=== PATIENT | female | born 2000 | race Caucasian/White ===

== ENCOUNTER 2020-02-25 05:01 | Inpatient (IN) | payer OTHER ==
[~2020-02-25] VITALS: Ht 165.1 cm; Wt 69.3 kg
[2020-02-25] VITALS (11 sets, daily range): BP systolic 110–133; BP diastolic 56–77
[2020-02-25] MEDS ORDERED: PRENTAB9 PO (06:17)
[2020-02-25] MEDS ORDERED: PEPC1TAB5 PO (06:17)
[2020-02-25] MEDS ORDERED: LR 1,000 ML IV SCH (06:28)
[2020-02-25] MEDS ORDERED: OXYTOCIN DRIP 30 UNITS in IV 1 EA IV SCH ×2 (06:30→11:36)
--- NOTE | 2020-02-25 07:01 | HPEPDOC ---
Obstetrical History & Physical General Date of Admission Feb 25, 2020 at 06:17 History of Present Illness 19 yo G1 @ 39+6 by 6 WEEKS US who presents in labor. she started having painful contractions yesterday at 8 PM and they have worsened through the night are now every 3-4 min. she denies any vaginal bleeding or loss of fluids. she notes regular movements. APC 1. Heterozygote for Factor V Leiden w/o personal History of VTE 2. Anemia 3. Transfer of care in 3rd trimester Chief Complaint: Contractions, term Information Provided By: Patient Age: 19 : 1 Care Care: Good Care Dating Final EDC: Feb 26, 2020 Final EDC by: 1st trimester (US) 1st Trimester Date: Jul 09, 2019 EGA at Admission: 39 Antepartum Course Diagnos(e)s APC 1. Heterozygote for Factor V Leiden w/o personal History of VTE 2. Anemia 3. Transfer of care in 3rd trimester Past Medical History Past Obstetrical History : Past Obstetrical History: [employer]img[employer]IST History: No pertinent history Past Medical History Medical History Heterozygous for Factor V Leiden Surgical History: Denies/None Family History Significant Family History: No pertinent family hx, Other (mother has factor V leiden) Allergies Coded Allergies: Penicillins (Verified Allergy, Unknown, 02/25/20) Medications Scheduled Famotidine (Pepcid) 20 Mg Tablet, 1 TAB PO BID No.137/Iron/Folic Acd ( Vitamin Tablet) 1 Each Tablet, 1 TAB PO DAILY Physical Examination Physical Examination GENERAL: Alert and oriented times three. BREAST: . ABDOMEN: Gravid and non-tender to touch. FETUS: Is vertex (VTX) by US HEART RATE: Regular rate and rhythm. LUNGS: LABORED BREATHING DUE TO LABOR PAIN EXTREMITIES: No edema. Laboratory Data 24H LABS Laboratory Tests 2 02/25/20 05:49: Serology Scanned Report Hepatitis B Testing Pertinent Laboratoy Data Blood Type: A+ RBC Antibody Screen: Negative HIV: Negative Hepatitis B: Negative Rapid Plasma Reagin: Nonreactive Rubella: Immune Chlamydia/Gonorrhea: Negative Group B Streptococcus: Positive Anatomy Ultrasound Placenta Location: Anterior Normal Anatomy: Yes Vaginal Examination Dilation: 4 cm Effacement: 100% Station: -1 Cervical Consistency: Soft Cervical Position: Anterior Presentation: Cephalic presentation Assessment Heart Rate (FHR): 130 Variability: Moderate Accelerations: Present Decelerations: None Tocometer Frequency: regular, every 1-3 min. Duration: greater than 60 seconds Strength: palpated as strong Multi-drug resistant Organism: No history of MDRO Assessment/Plan Assessment 19 yo G1 @ 39+6 by 6 WEEKS US Admitted in early labor at term. Edgar score>6. hemodynamically stable. cephalic my US, MVP 4.9cm. SVE Per RN 3-4cm/c/-1 @ 0600. reactive NST in triage. adequate for labor. Plan Admit and orient. 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 Diet: Clears. Group B Streptococcus (GBS) [negative]. Labs and intravenous (IV) per unit protocol. Counseled on Pitocin and augmentation of labor (IOL). Lactated Ringers (LR): Bolus mL, then at mL/hr. Anticipate normal spontaneous delivery (). C-S as appropriate. Consider starting 40mg Lovenox 6-12hrs after Vaginal delivery or 12-24 hrs after C/S due to her history of heterogenicity for Factor V Leiden. KEIRY OBRIEN MD Feb 25, 2020 07:01
[2020-02-25 07:10] LABS: HEMATOCRIT 41.8 % (36.0-47.0); HEMOGLOBIN 14.4 g/dl (12.0-15.5); MEAN CORPUSCULAR HEMOGLOBIN 32.7 pg (27.0-33.0); MEAN CORPUSCULAR HGB CONC 34.4 g/dl (32.0-36.5); MEAN CORPUSCULAR VOLUME 94.8 fl (80.0-96.0); PLATELET COUNT, AUTOMATED 205 10^3/uL (150-450); RED BLOOD COUNT 4.41 10^6/uL (4.00-5.40); WHITE BLOOD COUNT 12.1 10^3/uL (4.0-10.0)
--- NOTE | 2020-02-25 08:03 | IPNPDOC ---
Obstetrical Progress Note Date of Service Feb 25, 2020 Subjective 19 yo at 39w6d admitted for labor. She is breathing and working through her contractions. She has supportive family at the bedside. She has no questions at this time. She would like to labor in the bathtub. Objective Vital Signs Date Time Temp Pulse Resp B/P (MAP) Pulse Ox O2 Delivery O2 Flow Rate FiO2 02/25/20 07:16 71 18 133/63 (86) Assessment Heart Rate (FHR): 130 (by doppler) Tocometer Contractions: Yes Frequency: other (every 3-4 minutes) Sterile Vaginal Examination Dilation: 7 cm Effacement (%): 100% Station: -1, 0 Postion/Presentation: Cephalic presentation Assessment and Plan Age: 19 : 1 Term: 0 Pre-term: 0 Abortions: 0 Livin EGA at Admission: 39 (+6) Weeks & Days 39w6d Status: Reassuring Group B Streptococcus: Negative Anticipate: Vaginal Delivery Additional Comments Continue expectant management Consider AROM at next exam NELSON ABARCA CNM Feb 25, 2020 08:03
--- NOTE | 2020-02-25 09:59 | IPNPDOC ---
Obstetrical Progress Note Date of Service Feb 25, 2020 Subjective 19 yo at 39w6d admitted for labor. She is breathing and working through her contractions and rocking her hips using a squat bar. She has supportive family at the bedside. Objective Vital Signs Date Time Temp Pulse Resp B/P (MAP) Pulse Ox O2 Delivery O2 Flow Rate FiO2 02/25/20 08:50 97.8 89 18 123/76 (92) AROM for clear fluid Assessment Heart Rate (FHR): 125 Variability: Moderate Accelerations: Present Decelerations: None Tocometer Contractions: Yes Frequency: regular Duration: other (every 3-5 minutes) Sterile Vaginal Examination Dilation: 9 cm Effacement (%): 100% Station: -1, 0 Postion/Presentation: Cephalic presentation Assessment and Plan Age: 19 : 1 Term: 0 Pre-term: 0 Abortions: 0 Livin EGA at Admission: 39 (+6) Weeks & Days 39w6d Status: Reassuring Group B Streptococcus: Negative Anticipate: Vaginal Delivery NELSON ABARCA CNM Feb 25, 2020 09:59
[2020-02-25] MEDS ORDERED: MEASLES,MUMPS,RUBELLA VACCINE INJ (MMR-II) (90707) SC SCH (11:45)
[2020-02-25] MEDS ORDERED: DOCUSATE SODIUM 100 MG CAP PO PRN (11:45)
[2020-02-25] MEDS ORDERED: DIBUCAINE 1% OINTMENT 30GM TOP PRN (11:45)
[2020-02-25] MEDS ORDERED: miSOPROStol 200 MCG TAB (S0191) PR ONE (11:45)
[2020-02-25] MEDS ORDERED: ACETAMINOPHEN TAB 650MG DOSE (2X325MG) PO PRN (11:45)
[2020-02-25] MEDS ORDERED: METHYLERGONOVINE MALEATE 0.2 MG TAB PO PRN (11:45)
[2020-02-25] MEDS ORDERED: RHOGAM 300 MCG (1500 IU) INJ (J2790) IM SCH (11:45)
[2020-02-25] MEDS ORDERED: IBUPROFEN 800 MG TAB PO PRN (11:45)
[2020-02-25] MEDS ORDERED: ACETAMINOPHEN 500 MG TAB PO PRN (11:45)
--- NOTE | 2020-02-25 11:56 | DNPDOC ---
[facility] Delivery Note Delivery Note Date of the procedure: 02/25/2020. Preoperative diagnosis: 1. 19 y/o G 1 P0 at 39w6d 2. Active labor 3. GBS negative 4. A positive 5. Factor V Leiden 6. Anemia Postoperative diagnosis: 1. 19 y/o G 1 P1001 at 39w6d, delivered 2. Active labor 3. GBS negative 4. A positive 5. Factor V Leiden 6. Anemia Procedure: Delivering Provider: Nleson Byrne CNM, GALO, DIRK Slitter Creaser Slotter Helper Back-up: Syed Soto MD Anesthesia: None EBL: 300 Specimens: None Findings: Live female weighing 8 lb 12 oz, 3960 grams with Apgars of 8 and 9 at 1 and 5 minutes respectively. Complications: None Details of the procedure: The patient presented complaining of contractions and was found to be in active labor. Patient was 3-4 cm dilated and was then admitted to L&D. Labor progressed without Pitocin and membranes were ruptured artificially for clear fluid.. The patient progressed to fully dilated and entered the second stage of labor, at which point she began to push over an intact perineum. The head was then delivered. The nuchal cord was not noted. The rest of the was delivered. The infant was placed on maternal abdomen and the cord was doubly clamped and cut. Cord blood was not collected and a 3 vessel cord was noted. Manual exploration of the uterus was not performed. Uterine tone was boggy and bleeding was brisk. Fundal massage, IV pitocin, and CT cytotec were administered. Uterine tone became firm and bleeding was well controlled. Perineum was inspected and no was found. Cervical exam was normal. Rectal exam was normal. Sponge, instrument, and needle counts were correct. The patient tolerated the procedure well and is stable in recovery. Note was written and electronically signed by: Nelson Byrne CNM, GALO, NELSON HANDY CNM Feb 25, 2020 11:56
[2020-02-25] MEDS: IBUPROFEN 600MG TAB PO PRN (13:21)
[2020-02-26 06:00] VITALS: BP 139/75
[2020-02-26] MEDS: IBUPROFEN 600MG TAB PO PRN (08:00)
[2020-02-26] MEDS: PRENATAL VITAMINS CHEWABLE TABLET PO SCH (08:00)
--- NOTE | 2020-02-26 09:31 | IPNPDOC ---
Progress Note Date of Service: Feb 26, 2020 Day#: 1 Progress Note SUBJECT: 19-year-old 1 now Para 1 status post uncomplicated spontaneous vaginal delivery at 39-6/7 weeks' at approximately 1157 hours on 02/25/2020 of a female 8 pounds 12 ounces (3960grams) with post vaginal laceration and repair, doing well day # 1. She has been ambulating, voiding spontaneously without issue and tolerating regular diet. Breast feeding without issue. Reports lochia is minimal . Patient is ambulating well. OBJECTIVE: VITAL SIGNS: Within normal limits, afebrile. Alert and oriented times three. normal work of breathing Heart rate: Regular rate and rhythm Abdomen: Fundus firm at U-2. Soft, NTTP. ASSESSMENT: 19-year-old 1 now Para 1 status post uncomplicated sponta neous vaginal delivery at 39-6/7 weeks' at approximately 1157 hours on 02/25/2020 of a female 8 pounds 12 ounces (3960grams) with post vaginal laceration and repair, doing well day # 1. Vitals within normal limits, afebrile, hemodynamically stable with no evidence of infection. PLAN: 1. continue inpatient admission as she is first time mom and needs support with . 2. Tylenol and Motrin for pain. 3. Encourage breast feeding and ambulation. 4. must only get progestin only contraceptive due to being Heterozygous for Factor V Leiden. we discussed her carrier status increased her risk of VTE by 0.2-3% compared to the gen population, per ACOG Recommendations, we can continue surveillance w/o anticoagulation as she does not have any additional risk factors...encouraged ambulation and SCDs when in bed. 5. Plan to discharge tomorrow. VS, I&O, 24H, Fishbone Vital Signs/I&O Vital Signs Date Time Temp Pulse Resp B/P (MAP) Pulse Ox O2 Delivery O2 Flow Rate FiO2 02/26/20 06:00 96.7 60 18 139/75 (96) 02/25/20 17:50 Room Air I&O- Last 24 Hours up to 6 AM 02/26/20 06:00 Intake Total 1665 ml Output Total 900 ml Balance 765 ml KEIRY OBRIEN MD Feb 26, 2020 09:31
[2020-02-26 18:05] VITALS: BP 119/58
[2020-02-27 06:00] VITALS: BP 106/55
[2020-02-27] MEDS: PRENATAL VITAMINS CHEWABLE TABLET PO SCH (09:14)
[2020-02-27] MEDS ORDERED: DOCU100C16 PO (10:18)
[2020-02-27] MEDS ORDERED: IBUP80TA PO (10:18)
[2020-02-27] MEDS ORDERED: DIBU10OI TOP (10:18)
--- NOTE | 2020-02-29 11:52 | DSES ---
DATE OF ADMISSION: 02/25/2020 DATE OF DISCHARGE: 02/27/2020 A 19-year-old 1, now para 1, admitted with contractions at 39 and 6 weeks of gestation. Had a spontaneous vaginal delivery of a female , 8 pounds 12 ounces, 3960 grams, scores of 8 and 9 at one and five minutes, respectively. She has risk factors of Leiden factor V without superficial venous thrombosis, anemia, and GBS negative. Her hematocrit was 14.4, hematocrit 41.8, and platelets were 205. She is not on any anticoagulants, as discussed with the delivering physician, since she has no superficial phlebitis or any other risk factors. Mechanical suppression, good hydration, and ambulation are in order for this lady. On discharge, her blood pressure is 106/55, respirations 18, pulse 66, temperature is 97.6. The rest of the examination is unremarkable. Normocephalic, atraumatic. Neck: Full range of motion. Pupils equal and reactive to light. Distal pulses are symmetric. No evidence of deep venous thrombosis (DVT), pulmonary embolus (PE), or superficial phlebitis. Chest is clear bilaterally to bases. No wheezes or rhonchi. No costovertebral angle (CVA) tenderness. Abdomen is soft. Four-quadrant bowel sounds are noted. Uterus 2 below. Lochia is moderate. No rashes, lesions, or pruritus. No arthralgia or myalgia. No complaint of joint pain. No complaints of cough, wheeze, shortness of breath, or dyspnea on exertion. No nausea, vomiting, diarrhea, or constipation. No urgency or frequency. Breast-feeding is going well. Patient is passing gas and voiding. Plans are for discharge today. A 6-week checkup at [facility]. Medications to be picked up at [facility]. All questions were answered. A 20-minute discussion. Patient was discharged improved. NICKOLAS
== END 2020-02-27 14:12 | disposition home or self-care (01) | DRG 806 ==
LOC: M LDO 05:01 → M LDI 06:17 → M OBS 14:33
PROVIDERS: ADMIT Obstetrics & Gynecology; ATTEND Obstetrics & Gynecology
PROC: 10E0XZZ Delivery of Products of Conception, External Approach (ICD-10-PCS; principal; 2020-02-25)
DX: O99.13 Other diseases of the blood and blood-forming organs and certain disorders involving the immune mechanism complicating the puerperium (principal); Z37.0 Single live birth; D68.2 Hereditary deficiency of other clotting factors; Z3A.39 39 weeks gestation of pregnancy

== ENCOUNTER 2022-04-02 14:21 | Emergency (ER) | payer OTHER ==
[~2022-04-02] VITALS: Ht 165.1 cm; Wt 59.8 kg
[2022-04-02 14:22] VITALS: BP 150/79
== END 2022-04-02 22:34 | disposition left against medical advice (07) ==
LOC: M ED 14:21
DX: Z53.21 Procedure and treatment not carried out due to patient leaving prior to being seen by health care provider (principal)

== ENCOUNTER → 2022-04-02 | Outpatient (CLI) | payer OTHER ==
[~2022-04-02] MED LIST: DIBU28OI2 TOP; DOCU100C16 PO; IBUP80TA PO; PEPC1TAB5 PO; PRENTAB9 PO
== END ==
LOC: M LABSMTC 10:47
PROVIDERS: ATTEND Anesthesiology
DX: Z01.812 Encounter for preprocedural laboratory examination (principal); Z20.822 Contact with and (suspected) exposure to COVID-19

== ENCOUNTER 2022-04-04 10:10 | Day surgery (SDC) | payer OTHER ==
[~2022-04-04] VITALS: Ht 165.1 cm; Wt 59.3 kg
[~2022-04-04 10:10] MED LIST changes: +DOXYCYCLINE HYCLATE 100 MG in D5W MINI-BAG PLUS 100 ML IV ONE
[2022-04-04 10:40] LABS: HEMATOCRIT 37.5 % (36.0-47.0); HEMOGLOBIN 12.7 g/dl (12.0-15.5); MEAN CORPUSCULAR HEMOGLOBIN 32.6 pg (27.0-33.0); MEAN CORPUSCULAR HGB CONC 33.9 g/dl (32.0-36.5); MEAN CORPUSCULAR VOLUME 96.4 fl (80.0-96.0); PLATELET COUNT, AUTOMATED 209 10^3/uL (150-450); RED BLOOD COUNT 3.89 10^6/uL (4.00-5.40); WHITE BLOOD COUNT 10.2 10^3/uL (4.0-10.0)
[2022-04-04] MEDS ORDERED: OXYTOCIN INJ 10UNITS/ML 1ML VIAL As Ordered ONE (12:32)
[2022-04-04] MEDS ORDERED: METHYLERGONOVINE MALEATE 0.2 MG/ML VIAL (J2210) As Ordered ONE (12:33)
[2022-04-04] MEDS ORDERED: SILVER NITRATE APPLICATOR (1 = QTY 10) As Ordered ONE (12:33)
[2022-04-04] MEDS ORDERED: LIDOCAINE 1% SDV 30ML VIAL As Ordered ONE (12:34)
[2022-04-04] MEDS ORDERED: propofoL 200 MG/20 ML VIAL As Ordered ONE (12:36)
[2022-04-04] MEDS ORDERED: MIDAZOLAM INJ 2MG/2ML VIAL (J2250 PER 1MG) As Ordered ONE (12:36)
[2022-04-04] MEDS ORDERED: ONDANSETRON 4MG 2ML VIAL As Ordered ONE (12:36)
[2022-04-04] MEDS ORDERED: fentaNYL 100 MCG/2 ML INJECTION As Ordered ONE (12:36)
[2022-04-04] MEDS ORDERED: KETOROLAC 60MG 2ML VIAL As Ordered ONE (12:36)
[2022-04-04] MEDS ORDERED: LIDOCAINE 2% 100MG/5ML SDV (FOR ANES.) As Ordered ONE (12:36)
[2022-04-04] MEDS ORDERED: SUGAMMADEX SODIUM 500 MG/5 ML VIAL (BRIDION) As Ordered ONE (12:49)
[2022-04-04] MEDS ORDERED: ROCURONIUM BROMIDE 50MG/5ML VIAL As Ordered ONE (12:49)
[2022-04-04] MEDS ORDERED: DOXYCYCLINE HYCLATE 100MG/10ML VIAL As Ordered ONE (13:14)
[2022-04-04] MEDS ORDERED: fentaNYL 100 MCG/2 ML INJECTION IV PRN (14:15)
[2022-04-04] MEDS ORDERED: METOCLOPRAMIDE INJ 10MG/2ML VIAL IV PRN (14:15)
[2022-04-04] MEDS ORDERED: oxyCODONE 5MG TAB PO PRN (14:15)
[2022-04-04] MEDS ORDERED: ONDANSETRON 4MG 2ML VIAL IV PRN (14:15)
[2022-04-04] MEDS ORDERED: LR 1,000 ML IV SCH (14:15)
[2022-04-04] MEDS ORDERED: ACETAMINOPHEN TAB 650MG DOSE (2X325MG) PO ONE (14:40)
[2022-04-04 15:55] VITALS: BP 121/61
== END 2022-04-04 15:55 | disposition home or self-care (01) ==
LOC: M SDC 10:10
PROVIDERS: ATTEND Obstetrics & Gynecology
DX: O02.1 Missed abortion (principal); Z88.0 Allergy status to penicillin
CPT/HCPCS: 36415; 59820; 85027; 86850; 86900; 86901; 88233; 88262; 88269; 88280; 88285; 88291; 88305; J1100; J1885; J2250; J2405; J3010

== ENCOUNTER 2023-02-18 10:35 | Emergency (ER) | payer OTHER ==
[~2023-02-18] VITALS: Ht 165.1 cm; Wt 53.8 kg
[~2023-02-18 10:35] MED LIST changes: -DOXYCYCLINE HYCLATE 100 MG in D5W MINI-BAG PLUS 100 ML IV ONE
[2023-02-18 11:42] LABS: BASO % 0.4 % (0.0-1.0); EOS % 0.3 % (0.0-3.0); HEMATOCRIT 39.5 % (36.0-47.0); HEMOGLOBIN 13.7 g/dl (12.0-15.5); LYMPH # 1.2 10^3/uL (1.5-5.0); LYMPH % 17.9 % (24.0-44.0); MEAN CORPUSCULAR HEMOGLOBIN 32.9 pg (27.0-33.0); MEAN CORPUSCULAR HGB CONC 34.7 g/dl (32.0-36.5); MEAN CORPUSCULAR VOLUME 94.7 fl (80.0-96.0); MONO # 0.7 10^3/uL (0.0-0.8); NEUTROPHILS # 4.9 10^3/uL (1.5-8.5); PLATELET COUNT, AUTOMATED 229 10^3/uL (150-450); RED BLOOD COUNT 4.17 10^6/uL (4.00-5.40); WHITE BLOOD COUNT 6.9 10^3/uL (4.0-10.0)
[2023-02-18 13:48] VITALS: BP 123/56; TEMP 98.8; O2SAT 100
[2023-02-18 13:59] LABS: APPEARANCE, URINE CLEAR (CLEAR); BACTERIA, URINE AUTO NEGATIVE (NEGATIVE); BILIRUBIN, URINE AUTO NEGATIVE (NEGATIVE); BLOOD, URINE BLOOD 1+ (NEGATIVE); COLOR, URINE YELLOW (YELLOW); GLUCOSE, URINE (UA) AUTO NEGATIVE (NEGATIVE); KETONE, URINE AUTO 1+ mg/dL (NEGATIVE); LEUKOCYTE ESTERASE, URINE AUTO NEGATIVE (NEGATIVE); MUCUS, URINE SMALL (NEGATIVE); NITRITE, URINE AUTO NEGATIVE (NEGATIVE); PROTEIN, URINE AUTO NEGATIVE (NEGATIVE); RBC, URINE AUTO 0 /HPF (0-3); SPECIFIC GRAVITY URINE AUTO 1.013 (1.002-1.035); SQUAMOUS EPITHELIAL CELL UR AU 1 /HPF (0-6); UROBILINOGEN, URINE AUTO 0.2 mg/dL (0.0-2.0); WBC, URINE AUTO 0 /HPF (0-3)
== END 2023-02-18 13:49 | disposition home or self-care (01) ==
LOC: M ED 10:35
DX: O26.851 Spotting complicating pregnancy, first trimester (principal); Z88.0 Allergy status to penicillin; Z3A.01 Less than 8 weeks gestation of pregnancy